=== PATIENT | female | born 1995 | race Caucasian/White ===

== ENCOUNTER 2019-04-01 09:14 | Emergency (ER) | payer BC ==
--- NOTE | 2019-04-01 09:44 | EDM.PDOC ---
ED HPI GENERAL MEDICAL PROBLEM - General Chief Complaint: Headache Stated Complaint: MIGRAINE, CANT SEE OUT LT EYE, LT FINGERS TINGLING Time Seen by Provider: 04/01/19 09:44 Source of Information: Reports: Patient, RN, RN Notes Reviewed History Limitations: Reports: No Limitations - History of Present Illness INITIAL COMMENTS - FREE TEXT/NARRATIVE: Patient is a 24-year-old female who reports to ED today with a headache. She reports she has a long history of migraines but has not had one in some time. He reports he usually affects either side or bilateral eyes. Today she is complaining of left eye blurriness. She reports this started around 7:30 with a minor headache and then got progressively worse. She reports her left arm did become numb but that is improving. She reports she's never had this numbness before. She reports she's been nauseated, which is still there, but has not vomited. She reports she has been on Maxalt but her last package in 2014. She reports she did take this around 8:15 AM but did not help. She reports she has seen neurology in the past and did have a CT scan performed her sophomore year of high school. She does carry a history of exercise-induced asthma and is on albuterol when necessary for this. She reports she has borderline hypothyroidism but this appears to be diet controlled. Last TSH was about a year ago. She also reports she takes over-the -counter Zyrtec for allergies. She reports she has noted worsening sinus congestion and drainage over the last little while. She reports mild photophobia which is tolerable and no phonophobia. Her PCP is Erica Sanderson NP in [place]. Headache Pain Score (Numeric/FACES): 6 - Related Data Allergies Allergy/AdvReac Type Severity Reaction Status Date / Time polymyxin B [From Polytrim] Allergy Cannot Verified 04/01/19 09:40 Remember trimethoprim [From Polytrim] Allergy Cannot Verified 04/01/19 09:40 Remember vancomycin Allergy Anaphylactic Verified 04/01/19 09:40 Shock Home Meds: Home Meds Control. 1 tab PO DAILY 04/01/19 [History] ED ROS GENERAL - Review of Systems Review Of Systems: See Below Constitutional: Reports: No Symptoms. Denies: Fever, Chills, Weakness HEENT: Reports: Eye Pain, Glasses, Rhinitis, Sinus Problem, Vision Change. Denies: Contact Lenses, Dental Pain, Ear Discharge, Ear Pain, Eye Discharge, Hearing Loss, Nosebleed, Nose Pain, Throat Pain, Throat Swelling, Vertigo Respiratory: Reports: No Symptoms. Denies: Shortness of Breath, Wheezing, Pleuritic Chest Pain, Cough, Sputum, Hemoptysis Cardiovascular: Reports: No Symptoms. Denies: Chest Pain, Claudication, Dyspnea on Exertion Skin: Reports: No Symptoms Neurological: Reports: No Symptoms, Headache, Numbness (left arm), Tingling ( left arm). Denies: Confusion, Pre-Existing Deficit, Tremors, Trouble Speaking, Difficulty Walking, Weakness, Change in Speech, Gait Disturbance Psychiatric: Reports: No Symptoms. Denies: Agitation Hematologic/Lymphatic: Reports: No Symptoms Immunologic: Reports: No Symptoms - Physical Exam Exam: See Below Exam Limited By: No Limitations General Appearance: Alert, WD/WN, No Apparent Distress Eye Exam: Left Eye: Vision Changes (Reports blurry ), Bilateral Eye: EOMI, PERRL Ears: Normal External Exam, Normal Canal, Hearing Grossly Normal, Normal TMs Nose: Normal Inspection, Normal Mucosa, No Blood Throat/Mouth: Normal Inspection, Normal Lips, Normal Teeth, Normal Gums, Normal Oropharynx, Normal Voice, No Airway Compromise Head Exam: Atraumatic, Normocephalic Neck: Normal Inspection, Supple, Non-Tender, Full Range of Motion Respiratory/Chest: No Respiratory Distress, Lungs Clear, Normal Breath Sounds, No Accessory Muscle Use Cardiovascular: Normal Peripheral Pulses, Regular Rate, Rhythm, No Edema, No Gallop, No JVD, No Murmur, No Rub Neuro Exam (Abbreviated): Alert, Oriented, CN II-XII Intact, Normal Cognition, No Motor/Sensory Deficits Extremities: Normal Inspection, Normal Range of Motion Skin Exam: Warm, Dry, Intact, Normal Color Course - Vital Signs Last Recorded V/S: Last Vital Signs Temp 98.7 F 04/01/19 09:42 Pulse 78 04/01/19 09:42 Resp 18 04/01/19 09:42 BP 125/76 04/01/19 09:42 Pulse Ox 100 04/01/19 09:42 - Orders/Labs/Meds Orders: Active Orders 24 hr Category Date Time Status Sodium Chloride 0.9% [Saline Flush] Med 04/01/19 10:05 Active 10 ml FLUSH ASDIRECTED PRN Saline Lock Insert [OM.PC] Routine Oth 04/01/19 10:05 Ordered Medication Orders Sodium Chloride (Saline Flush) 10 ml FLUSH ASDIRECTED PRN PRN Reason: Keep Vein Open Last Admin: 04/01/19 10:37 Dose: 10 ml Meds: Medications Generic Name Dose Route Start Last Admin Trade Name Freq PRN Reason Stop Dose Admin Sodium Chloride 10 ml 04/01/19 10:05 04/01/19 10:37 Saline Flush FLUSH 10 ml ASDIRECTED PRN Administration Keep Vein Open Discontinued Medications Generic Name Dose Route Start Last Admin Trade Name Freq PRN Reason Stop Dose Admin Diphenhydramine HCl 50 mg 04/01/19 10:07 04/01/19 10:31 Benadryl IVPUSH 04/01/19 10:08 50 mg ONETIME ONE Administration Ketorolac Tromethamine 30 mg 04/01/19 10:06 04/01/19 10:33 Toradol IVPUSH 04/01/19 10:07 30 mg ONETIME ONE Administration Prochlorperazine Edisylate 5 mg 04/01/19 10:05 04/01/19 10:35 Compazine IVPUSH 04/01/19 10:06 5 mg ONETIME ONE Administration - Re-Assessments/Exams Free Text/Narrative Re-Assessment/Exam: Initial workup will include CT scan of the head as well as IV Toradol, Compazine , and Benadryl. Discussed possibility of patient being and she reports there is no way. Therefore will go ahead with CT scan. 04/01/19 10:11 Headache has greatly improved with treatment plan above. Patient reports she now feels very sleepy which is to be expected. CT scan returns and interpreted by Dr. Meléndez as nothing acute. Update the patient on scan findings. 04/01/19 11:08 Departure - Departure Time of Disposition: 11:09 Disposition: Home, Self-Care 01 Condition: Good Clinical Impression: Migraine - Discharge Information *PRESCRIPTION DRUG MONITORING PROGRAM REVIEWED*: No *COPY OF PRESCRIPTION DRUG MONITORING REPORT IN PATIENT DAYSI: No Instructions: Migraine Headache, [id number], Recurrent Migraine Headache, [id number] Referrals: Charlotte Sanderson PA [Primary Care Provider] - Forms: ED Department Discharge Additional Instructions: You were seen today in the emergency room for a headache. Symptoms had improved however he was still reporting some numbness down her left arm. This is a change from prior presentation so a CT scan of the head was obtained which showed nothing acute. You have also been complaining of some sinus pressure and coincidentally your sinuses on the CT scan looked good. You report you are sleepy now, which is a side effect of the medications you were given. You report you feel good and would like to go home. Recommend you follow-up with your primary care provider from [place] or establish with one locally and see them within the next week. They may want to res-start your Maxalt. Should you continue to have symptoms a neurology visit would certainly be warranted. Do not drive today. Take it easy for the rest of the day. Should symptoms return or worsen, return to the emergency room, or contact your primary care provider. You may continue to take Tylenol or ibuprofen as needed for pain. - My Orders Last 24 Hours: My Active Orders 04/01/19 10:05 Sodium Chloride 0.9% [Saline Flush] 10 ml FLUSH ASDIRECTED PRN Saline Lock Insert [OM.PC] Routine - Assessment/Plan Last 24 Hours: My Active Orders 04/01/19 10:05 Sodium Chloride 0.9% [Saline Flush] 10 ml FLUSH ASDIRECTED PRN Saline Lock Insert [OM.PC] Routine
[2019-04-01] MEDS ORDERED: Prochlorperazine 10 MG/2 ML SDV IVPUSH ONE (10:05)
[2019-04-01] MEDS ORDERED: Sodium Chloride 0.9% 10 ML Syringe FLUSH PRN (10:05)
[2019-04-01] MEDS ORDERED: Ketorolac 30 MG/ML SDV IVPUSH ONE (10:06)
[2019-04-01] MEDS ORDERED: diphenhydrAMINE 50 MG/ML SDV IVPUSH ONE (10:07)
--- NOTE | 2019-04-01 11:00 | CT ---
Head CT Technique: Multiple axial sections were obtained through the brain. Intravenous contrast was not utilized. Comparison: No prior intracranial imaging is available. Findings: Ventricles along with basal cisterns and sulci over the convexities are within normal limits for the patient's age. No abnormal parenchymal densities are seen. No evidence of intracranial hemorrhage. No midline shift or mass effect is seen. Bone window settings were reviewed which show no acute calvarial abnormality. Visualized paranasal sinuses are clear. Mastoid sinuses are clear. Impression: 1. Nothing acute is appreciated on noncontrast head CT exam. Diagnostic code #1
== END 2019-04-01 11:23 | disposition home or self-care (01) ==
LOC: JD.ED 09:14
DX: G43.909 Migraine, unspecified, not intractable, without status migrainosus (principal); J45.990 Exercise induced bronchospasm; Z88.1 Allergy status to other antibiotic agents
CPT/HCPCS: 70450; 96374; 96375; 99284; J0780; J1200; J1885

== ENCOUNTER 2020-04-22 04:16 | Emergency (ER) | payer BC ==
--- NOTE | 2020-04-22 05:34 | EDM.PDOC ---
ED HPI GENERAL MEDICAL PROBLEM - General Chief Complaint: Respiratory Problem Stated Complaint: SOB COVID POSITIVE Time Seen by Provider: 04/22/20 04:44 Source of Information: Reports: Patient, RN Notes Reviewed - History of Present Illness INITIAL COMMENTS - FREE TEXT/NARRATIVE: 25 yr old female developed onset of sx about 9 days ago, found out she was covid positive 1 week ago. Became more short of breath early this morning. Continued nonprod. cough. No recent fever. No pain with breathing but "chest feels heavy". Hx asthma. Has been using her inhaler. Chest Pain Score (Numeric/FACES): 7 - Related Data Allergies Allergy/AdvReac Type Severity Reaction Status Date / Time polymyxin B [From Polytrim] Allergy Cannot Verified 04/22/20 04:26 Remember trimethoprim [From Polytrim] Allergy Cannot Verified 04/22/20 04:26 Remember vancomycin Allergy Anaphylactic Verified 04/22/20 04:26 Shock Home Meds: Home Meds . [No Known Home Meds] 04/22/20 [History] Past Medical History - Past Health History Medical/Surgical History: Denies Medical/Surgical History Neurological History: Reports: Migraines Social & Family History - Tobacco Use Tobacco Use Status *Q: Never Tobacco User - Recreational Drug Use Recreational Drug Use: No ED ROS GENERAL - Review of Systems Review Of Systems: See Below Constitutional: Denies: Fever (no recent fever), Chills HEENT: Denies: Throat Pain Respiratory: Reports: Shortness of Breath, Cough Cardiovascular: Reports: Chest Pain (chest feels heavy) GI/Abdominal: Denies: Abdominal Pain, Vomiting Musculoskeletal: Reports: Other (generalized achiness) Neurological: Reports: No Symptoms ED EXAM, GENERAL - Physical Exam Exam: See Below General Appearance: Alert, Anxious Head: Atraumatic Neck: Supple Respiratory/Chest: No Respiratory Distress, Lungs Clear, Normal Breath Sounds. No: Rales, Rhonchi, Wheezing Extremities: Normal Inspection. No: Pedal Edema Neurological: Alert, Oriented, No Motor/Sensory Deficits Skin Exam: Warm, Dry, Normal Color, No Rash Course - Vital Signs Last Recorded V/S: Last Vital Signs Temp 98.2 F 04/22/20 04:26 Pulse 109 H 04/22/20 04:26 Resp 17 04/22/20 04:26 BP 125/80 04/22/20 04:26 Pulse Ox 100 11/25/20 04:26 - Orders/Labs/Meds Orders: Active Orders 24 hr Category Date Time Status Chest 1V Frontal [CR] Stat Exams 04/22/20 04:45 Taken - Re-Assessments/Exams Free Text/Narrative Re-Assessment/Exam: 04/22/20 05:56 CXR looked nl to me, Radiology report is calling minimal ground glass airway disease bilat lower lobes, see report for details. Her sats have been good the whole time, 100 %. Discharge instr. as documented. Departure - Departure Time of Disposition: 05:30 Disposition: Home, Self-Care 01 Condition: Fair Clinical Impression: COVID-19 virus infection Dyspnea Qualifiers: Dyspnea type: shortness of breath Qualified Code(s): R06.02 - Shortness of breath - Discharge Information Instructions: Shortness of Breath, Adult, [id number], Prevent the Spread of COVID-19 if You Are Sick - [facility] Referrals: PCP,None [Primary Care Provider] - Forms: ED Department Discharge Additional Instructions: Continue to use your inhaler as needed. Your CXR this morning shows minimal ground glass air space disease per Radiology report. Your oxygen level is running 100 % which is very good. We have been told [facility] is providing free oximeters for their patients with covid to moniter their oxygen levels. Calls [facility] after 8:00 this morning to see if they have an oximeter available for you to moniter your oxygen at home for the remainder of your illness. Return to ED if you oxygen levels start reading in the low 90's or below 90 %. Return to ED otherwise as needed. Based on the time line of your illness you should start feeling better over the next 3 to 5 days if not sooner. Sepsis Event Note (ED) - Evaluation Sepsis Screening Result: No Definite Risk - Focused Exam Vital Signs: Vital Signs Temp Pulse Resp BP Pulse Ox 04/22/20 04:26 98.2 F 109 H 17 125/80 100 - My Orders Last 24 Hours: My Active Orders 04/22/20 04:45 Chest 1V Frontal [CR] Stat - Assessment/Plan Last 24 Hours: My Active Orders 04/22/20 04:45 Chest 1V Frontal [CR] Stat
--- NOTE | 2020-04-22 08:44 | CR ---
PROCEDURE INFORMATION: Exam: XR Chest, 1 View Exam date and time: 04/22/2020 4:40 AM Age: 25 years old Clinical indication: Cough and dyspnea and shortness of breath; Patient HX: Covid positive TECHNIQUE: Imaging protocol: XR of the chest Views: 1 view. COMPARISON: No relevant prior studies available. FINDINGS: Lungs: Minimal ground-glass airspace disease at the lower lung buckner. Pleural space: Unremarkable. No pleural effusion. No pneumothorax. Heart/Mediastinum: Unremarkable. No cardiomegaly. Bones/joints: Unremarkable. IMPRESSION: Minimal ground-glass airspace disease at the lower lung buckner. Followup radiographs recommended after appropriate therapy. Thank you for allowing us to participate in the care of your patient. Dictated and Authenticated by: Sal Barone MD 04/22/2020 6:29 AM Central Time ([place] & [place]) [facility]
== END 2020-04-22 05:46 | disposition home or self-care (01) ==
LOC: JD.ED 04:16
DX: U07.1 COVID-19 (principal); Z88.1 Allergy status to other antibiotic agents
CPT/HCPCS: 71045; 71045-26; 99284-25

== ENCOUNTER 2022-01-01 09:26 | Emergency (ER) | payer BC ==
[2022-01-01] MEDS ORDERED: Sodium Chloride 0.9% 10 ML Syringe FLUSH PRN (09:55)
== END 2022-01-01 11:53 | disposition home or self-care (01) ==
LOC: JD.ED 09:26
DX: O03.89 Complete or unspecified spontaneous abortion with other complications (principal); Z88.1 Allergy status to other antibiotic agents
CPT/HCPCS: 36415; 76817; 84702; 85025; 86900; 86901; 99284; J3490

== ENCOUNTER 2023-02-04 07:28 | Inpatient (IN) | payer BC ==
[~2023-02-04 07:28] MED LIST: Lidocaine 1.5% with EPINEPHrine 1:200,000 5 ML Amp ONE
[2023-02-04] MEDS ORDERED: Nalbuphine 10 MG/0.5 ML Syringe IVPUSH PRN (08:05)
[2023-02-04] MEDS ORDERED: Ampicillin 2 GM in Sodium Chloride 0.9% 100 ML IV ONE (08:05)
[2023-02-04] MEDS ORDERED: Ondansetron 4 MG/2 ML SDV IVPUSH PRN (08:05)
[2023-02-04] MEDS ORDERED: Lidocaine 1% 50 ML MDV INJECT ONE (08:05)
[2023-02-04] MEDS ORDERED: Sodium Chloride 0.9% 10 ML Syringe FLUSH PRN (08:05)
[2023-02-04] MEDS ORDERED: Oxytocin/Lactated Ringers 10 UNIT/1,000 ML BAG IV SCH ×2 (08:15→08:45)
[2023-02-04 08:29] LABS: BASOPHILS ABSOLUTE AUTO 0.1 K/mm3 (0.0-0.2); BASOPHILS PERCENT AUTO 0.5 % (0.0-1.0); EOSINOPHILS ABSOLUTE AUTO 0.6 K/mm3 (0.0-0.4); EOSINOPHILS PERCENT AUTO 3.7 % (0.0-6.0); HEMATOCRIT 34.6 % (37.0-47.0); HEMOGLOBIN 11.2 gm/dl (12.0-16.0); IMMATURE GRAN ABSOLUTE AUTO 0.17 K/mm3 (0.00-0.05); IMMATURE GRAN PERCENT AUTO 1.1 % (0.0-0.4); LYMPHOCYTES ABSOLUTE AUTO 2.8 K/mm3 (1.0-4.8); LYMPHOCYTES PERCENT AUTO 18.8 % (24.0-44.0); MEAN CORPUSCULAR HEMOGLOBIN 28.9 pg (28.0-32.0); MEAN CORPUSCULAR HGB CONC 32.4 g/dl (32.0-36.0); MEAN CORPUSCULAR VOLUME 89.2 fl (83.0-99.0); MEAN PLATELET VOLUME 9.8 fl (9.4-12.3); MONOCYTES PERCENT AUTO 6.6 % (0.0-8.0); NEUTROPHILS ABSOLUTE AUTO 10.4 K/mm3 (1.8-7.7); NEUTROPHILS PERCENT AUTO 69.3 % (41.0-71.0); PLATELET COUNT,PLT 340 K/mm3 (150-400); RED BLOOD CELL COUNT 3.88 M/mm3 (4.10-5.30); WHITE BLOOD CELL COUNT,WBC 15.02 K/mm3 (3.9-11.3)
[2023-02-04] MEDS: Lactated Ringers 1,000 ML IV SCH ×2 (08:31→12:04)
[2023-02-04] MEDS ORDERED: Sodium Chloride 0.9% 10 ML Syringe FLUSH SCH (09:00)
[2023-02-04] MEDS ORDERED: ePHEDrine 50 MG/ML SDV IVPUSH PRN (11:47)
[2023-02-04] MEDS ORDERED: diphenhydrAMINE 50 MG/ML SDV IVPUSH PRN (11:47)
[2023-02-04] MEDS ORDERED: fentaNYL 100 MCG/2 ML SDV EPIDUR PRN (11:47)
[2023-02-04] MEDS: Bupivacaine/fentaNYL/NS 100 ML Bag EPIDUR PRN ×2 (11:54→18:31)
[2023-02-04] MEDS: Ampicillin 1 GM in Sodium Chloride 0.9% 100 ML IV SCH ×3 (12:17→20:00)
[2023-02-04] MEDS ORDERED: Acetaminophen 325 MG Tab PO PRN (21:22)
[2023-02-04] MEDS ORDERED: Witch Hazel Medicated Pads 40/Jar TOP PRN (21:22)
[2023-02-04] MEDS ORDERED: Benzocaine/Menthol 20%-0.5% Spray 78 GM Cannister TOP PRN (21:22)
[2023-02-04] MEDS ORDERED: Misoprostol 200 MCG Tab BUCCAL ONE (21:22)
[2023-02-04] MEDS: Ibuprofen 600 MG Tab PO PRN (21:36)
[2023-02-05] MEDS: Ibuprofen 600 MG Tab PO PRN ×2 (09:30→19:39)
[2023-02-06] MEDS: Ibuprofen 600 MG Tab PO PRN (04:39)
== END 2023-02-06 09:41 | disposition home or self-care (01) | DRG 560 ==
LOC: JD.OB 07:28 → OBSVTOIN 19:35 → JD.OB 19:36
PROVIDERS: ADMIT Obstetrics & Gynecology; ATTEND Obstetrics & Gynecology
PROC: 10E0XZZ Delivery of Products of Conception, External Approach (ICD-10-PCS; principal; 2023-02-04)
PROC: 10907ZC Drainage of Amniotic Fluid, Therapeutic from Products of Conception, Via Natural or Artificial Opening (ICD-10-PCS; 2023-02-04)
PROC: 3E033VJ Introduction of Other Hormone into Peripheral Vein, Percutaneous Approach (ICD-10-PCS; 2023-02-04)
PROC: 3E0R3BZ Introduction of Anesthetic Agent into Spinal Canal, Percutaneous Approach (ICD-10-PCS; 2023-02-04)
PROC: 00HU33Z Insertion of Infusion Device into Spinal Canal, Percutaneous Approach (ICD-10-PCS; 2023-02-04)
PROC: 3E0DXGC Introduction of Other Therapeutic Substance into Mouth and Pharynx, External Approach (ICD-10-PCS; 2023-02-04)
DX: O99.824 Streptococcus B carrier state complicating childbirth (principal); Z37.0 Single live birth; O99.52 Diseases of the respiratory system complicating childbirth; J45.909 Unspecified asthma, uncomplicated; Z3A.39 39 weeks gestation of pregnancy; Z88.8 Allergy status to other drugs, medicaments and biological substances; Z88.1 Allergy status to other antibiotic agents; Z90.89 Acquired absence of other organs
CPT/HCPCS: 01967; 36415; 51701; 51702; 59025; 59409; 85025; 86592; 86850; 86900; 86901; A9270-GY; J0290; J2590; J3010; J3490; J7120

== ENCOUNTER 2024-05-11 10:25 | Inpatient (IN) | payer BC ==
[2024-05-11] MEDS ORDERED: Sodium Chloride 0.9% 10 ML Syringe FLUSH PRN (19:19)
[2024-05-11] MEDS ORDERED: Ondansetron 4 MG/2 ML SDV IVPUSH PRN (19:19)
[2024-05-11] MEDS ORDERED: Lidocaine 1% 50 ML MDV INJECT PRN (19:19)
[2024-05-11] MEDS ORDERED: Calcium Carbonate 500 MG Tab.Chew PO PRN (19:19)
[2024-05-11] MEDS ORDERED: Nalbuphine 10 MG/1 ML Vial IVPUSH PRN (19:19)
[2024-05-11] MEDS ORDERED: Oxytocin/0.9 % Sodium Chloride 30 UNIT/500 ML BAG IV SCH (19:30)
[2024-05-11 19:35] LABS: BASOPHILS PERCENT AUTO 0.3 % (0.0-1.0); EOSINOPHILS ABSOLUTE AUTO 0.3 K/mm3 (0.0-0.4); EOSINOPHILS PERCENT AUTO 1.8 % (0.0-6.0); HEMATOCRIT 29.3 % (37.0-47.0); HEMOGLOBIN 8.7 gm/dl (12.0-16.0); IMMATURE GRAN ABSOLUTE AUTO 0.14 K/mm3 (0.00-0.05); LYMPHOCYTES ABSOLUTE AUTO 3.1 K/mm3 (1.0-4.8); LYMPHOCYTES PERCENT AUTO 22.1 % (24.0-44.0); MEAN CORPUSCULAR HGB CONC 29.7 g/dl (32.0-36.0); MEAN CORPUSCULAR VOLUME 80.9 fl (83.0-99.0); MEAN PLATELET VOLUME 9.6 fl (9.4-12.3); MONOCYTES PERCENT AUTO 7.3 % (0.0-8.0); NEUTROPHILS ABSOLUTE AUTO 9.6 K/mm3 (1.8-7.7); NEUTROPHILS PERCENT AUTO 67.5 % (41.0-71.0); PLATELET COUNT,PLT 296 K/mm3 (150-400); RED BLOOD CELL COUNT 3.62 M/mm3 (4.10-5.30); WHITE BLOOD CELL COUNT,WBC 14.19 K/mm3 (3.9-11.3)
[2024-05-11] MEDS: Lactated Ringers 1,000 ML IV SCH (19:57)
[2024-05-11] MEDS: Oxytocin/0.9 % Sodium Chloride 30 UNIT/500 ML BAG IV SCH (20:02)
[2024-05-12] MEDS ORDERED: ePHEDrine 50 MG/ML SDV ONE
[2024-05-12] MEDS ORDERED: Bupivacaine 0.25% 10 ML SDV ONE
[2024-05-12] MEDS ORDERED: ePHEDrine 50 MG/ML SDV IVPUSH PRN (02:18)
[2024-05-12] MEDS ORDERED: diphenhydrAMINE 50 MG/ML SDV IVPUSH PRN (02:18)
[2024-05-12] MEDS: fentaNYL 100 MCG/2 ML SDV EPIDUR PRN (03:15)
[2024-05-12] MEDS: Bupivacaine/fentaNYL/NS 100 ML Bag EPIDUR PRN (03:16)
[2024-05-12] MEDS: Tranexamic Acid 1,000 MG/10 ML Vial ONE (10:30)
[2024-05-12] MEDS ORDERED: Acetaminophen 325 MG Tab PO PRN (11:24)
[2024-05-12 12:15] LABS: HEMATOCRIT 26.5 % (37.0-47.0); HEMOGLOBIN 7.7 gm/dl (12.0-16.0); MEAN CORPUSCULAR HEMOGLOBIN 24.1 pg (28.0-32.0); MEAN CORPUSCULAR HGB CONC 29.1 g/dl (32.0-36.0); MEAN CORPUSCULAR VOLUME 83.1 fl (83.0-99.0); PLATELET COUNT,PLT 267 K/mm3 (150-400); RED BLOOD CELL COUNT 3.19 M/mm3 (4.10-5.30)
[2024-05-12] MEDS: Benzocaine/Menthol 20%-0.5% Spray 78 GM Cannister TOP PRN (13:07)
[2024-05-12] MEDS: Witch Hazel Medicated Pads 40/Jar TOP PRN (13:08)
[2024-05-12] MEDS: Ibuprofen 600 MG Tab PO SCH (16:30)
[2024-05-13 05:48] LABS: BASOPHILS ABSOLUTE AUTO 0.1 K/mm3 (0.0-0.2); BASOPHILS PERCENT AUTO 0.4 % (0.0-1.0); EOSINOPHILS ABSOLUTE AUTO 0.3 K/mm3 (0.0-0.4); EOSINOPHILS PERCENT AUTO 2.1 % (0.0-6.0); HEMATOCRIT 24.7 % (37.0-47.0); IMMATURE GRAN ABSOLUTE AUTO 0.16 K/mm3 (0.00-0.05); LYMPHOCYTES ABSOLUTE AUTO 3.6 K/mm3 (1.0-4.8); LYMPHOCYTES PERCENT AUTO 22.6 % (24.0-44.0); MEAN CORPUSCULAR HEMOGLOBIN 24.6 pg (28.0-32.0); MEAN CORPUSCULAR HGB CONC 29.6 g/dl (32.0-36.0); MEAN CORPUSCULAR VOLUME 83.2 fl (83.0-99.0); MEAN PLATELET VOLUME 10.4 fl (9.4-12.3); MONOCYTES PERCENT AUTO 6.3 % (0.0-8.0); NEUTROPHILS ABSOLUTE AUTO 10.8 K/mm3 (1.8-7.7); NEUTROPHILS PERCENT AUTO 67.6 % (41.0-71.0); PLATELET COUNT,PLT 245 K/mm3 (150-400); RED BLOOD CELL COUNT 2.97 M/mm3 (4.10-5.30)
[2024-05-13 06:28] LABS: HEMOGLOBIN 7.3 gm/dl (12.0-16.0)
== END 2024-05-14 10:48 | disposition home or self-care (01) | DRG 560 ==
LOC: JD.OB 10:25 → OBSVTOIN 05-12 10:25 → JD.OB 05-12 10:26
PROVIDERS: ADMIT Obstetrics & Gynecology; ATTEND Obstetrics & Gynecology
PROC: 10E0XZZ Delivery of Products of Conception, External Approach (ICD-10-PCS; principal; 2024-05-12)
PROC: 10907ZC Drainage of Amniotic Fluid, Therapeutic from Products of Conception, Via Natural or Artificial Opening (ICD-10-PCS; 2024-05-12)
PROC: 3E033VJ Introduction of Other Hormone into Peripheral Vein, Percutaneous Approach (ICD-10-PCS; 2024-05-12)
PROC: 3E0R3BZ Introduction of Anesthetic Agent into Spinal Canal, Percutaneous Approach (ICD-10-PCS; 2024-05-12)
PROC: 00HU33Z Insertion of Infusion Device into Spinal Canal, Percutaneous Approach (ICD-10-PCS; 2024-05-12)
DX: O99.02 Anemia complicating childbirth (principal); Z3A.39 39 weeks gestation of pregnancy; Z37.0 Single live birth
CPT/HCPCS: 01967; 36415; 51702; 59025; 59409; 85025; 85027; 86592; 86850; 86900; 86901; A9270-GY; J0665; J3010; J3490; J7120; J7999